=== PATIENT | female | born 1980 | race Caucasian/White ===

== ENCOUNTER 2018-12-07 18:37 | Emergency (ER) | payer BC ==
[2018-12-07 18:53] VITALS: BP 120/70
--- NOTE | 2018-12-07 18:55 | UC ---
UC General HPI - HPI Summary HPI Summary: 38 yo alba presents with body aches, low back pain, and lower abdominal cramping since last night. Pt tells me that last night around 1700 she began to feel fatigued with body aches. Later developed severe low back pain with some mild lower abdominal pain. She took ibuprofen and benadryl and their symptoms improved. This morning her discomfort is significantly improved, but still feels fatigued and has body aches with mild lower abdominal pain. They are eating and drinking well. Denies fever, sinus symptoms, sore throat, cough, SOB , chest pain, n/v/d/c, dysuria. PMHx with IBS and chronic pain/fatigue syndrome. - History of Current Complaint Chief Complaint: UCGeneralIllness Stated Complaint: PAIN, WEAKNESS Time Seen by Provider: 12/07/18 18:54 Hx Obtained From: Patient Onset/Duration: Gradual Onset Onset Severity: Severe Current Severity: Moderate Pain Intensity: 5 - Allergy/Home Medications Allergies/Adverse Reactions: Allergies Allergy/AdvReac Type Severity Reaction Status Date / Time No Known Allergies Allergy Verified 12/07/18 18:54 Home Medications: Home Medications Estradiol Cypionate [Depo-Estradiol] 1 unit IM SEE INSTRUCTIONS 12/07/18 [ History Confirmed 12/07/18] Ibuprofen [Advil] 400 mg PO ONCE PRN 12/07/18 [History Confirmed 12/07/18] diphenhydrAMINE HCl [Benadryl Allergy] 1 tab PO ONCE PRN 12/07/18 [History Confirmed 12/07/18] PMH/Surg Hx/FS Hx/Imm Hx - Additional Past Medical History Additional PMH: Hepatitis C Trans - Surgical History Surgical History: Yes Surgery Procedure, Year, and Place: breast augmentation. vaginalplasty - Family History Known Family History: Positive: None - Social History Lives: With Family Alcohol Use: Occasionally Substance Use Type: None Smoking Status (MU): Never Smoked Tobacco Review of Systems All Other Systems Reviewed And Are Negative: Yes Constitutional: Positive: Fatigue, Other - Body aches Skin: Positive: Negative Respiratory: Positive: Negative Cardiovascular: Positive: Negative Gastrointestinal: Positive: Abdominal Pain Genitourinary: Positive: Negative Neurovascular: Positive: Negative Musculoskeletal: Positive: Other: - Low back pain Neurological: Positive: Negative Psychological: Positive: Negative Physical Exam - Summary Physical Exam Summary: GENERAL: NAD. WDWN. No pain distress. SKIN: No rashes, sores, or open wounds. HEENT: Head: AT/NC Eyes: PERRLA. EOM intact. Conjunctiva clear without inflammation or discharge. Ears: Hearing grossly normal. TMs intact, no bulging, erythema, or edema. Nose: Nasal mucosa pink and moist. NTTP maxillary and frontal sinus. Throat: Posterior oropharynx without exudates, erythema, or tonsillar enlargement. Uvula midline. NECK: Supple. Nontender. No lymphadenopathy. CHEST: CTAB. No r/r/w. No accessory muscle use. Breathing comfortably and in no distress. CV: RRR. Without m/r/g. Pulses intact. Brisk cap refill. ABDOMEN: Mild TTP lower abdomen without specific tenderness.Soft. No distention or guarding. No CVA tenderness. Bowel sounds present. Negative dumont. No Mcburney point tenderness. MSK: Lumbar spine: Mild TTP paraspinal muscles. Positive SLR on right for low back pain without radiation. FROM and 5/5 strength throughout. No edema. NEURO: Alert. Sensations intact L3-S1 b/l. Reflexes intact. PSYCH: Age appropriate behavior. Triage Information Reviewed: Yes Vital Signs: Initial Vital Signs Temp 98.3 F 12/07/18 18:47 Pulse 70 12/07/18 18:47 Resp 18 12/07/18 18:47 BP 120/70 12/07/18 18:47 Pulse Ox 100 12/07/18 18:47 Laboratory Tests 12/07/18 12/07/18 19:16 19:17 POC Urine Color Yellow POC Urine Clarity Clear POC Urine pH 6.5 POC Ur Specif Adger 1.015 POC Urine Protein Negative POC Ur Glucose (UA) Negative POC Urine Ketones Negative POC Urine Blood Trace-intact A POC Urine Nitrite Negative POC Urine Bilirubin Negative POC Urine Urobilinogen 0.2 POC U Leukocyte Esteras Negative Group A Strep Rapid Negative Vital Signs Reviewed: Yes Course/Dx - Course Course Of Treatment: CT: IMPRESSION: No CT findings to correlate with patient's symptomatology. UA and strep negative. At this time I do not suspect a systemic or urgent/emergent condition as pt is well appearing, afebrile, exam WNL, and workup so far has been normal. I suspect more of a viral illness or underlying chronic illness - possibly related to their chronic fatigue/pain syndrome. Will draw for CBC, CMP, TSH, lyme, and ESR and have pt f/u with their PCP as scheduled for later this month. - Diagnoses Provider Diagnosis: Body aches, Lower abdominal pain, Low back pain Discharge - Sign-Out/Discharge Documenting (check all that apply): Patient Departure All imaging exams completed and their final reports reviewed: Yes - Discharge Plan Condition: Stable Disposition: HOME Referrals: No Primary Care Phys,NOPCP [Primary Care Provider] - Additional Instructions: If you develop a fever, shortness of breath, chest pain, new or worsening symptoms - please call your PCP or go to the ED immediately. I am unsure the cause of your symptoms today, but luckily your exam and testing today has all been normal. We have drawn labwork to further evaluate your symptoms. I recommend that you rest and take ibuprofen as directed for your discomfort and keep your appointment with your Primary Doctor later this month for a recheck of your symptoms. - Billing Disposition and Condition Condition: STABLE Disposition: Home
[2018-12-08 10:58] LABS: ABS Basophils 0.1 10^3/ul (0-0.2); ABS Eosinophils 0.3 10^3/ul (0-0.6); ABS Monocytes 0.4 10^3/ul (0-0.8); ABS Neutrophils 5.8 10^3/ul (1.5-7.7); Eosinophil % 3.3 %; Hematocrit 38 % (35-47); Hemoglobin 12.9 g/dL (12.0-16.0); Lymphocyte % 23.4 %; Mean Corpuscular HGB Conc 34 g/dL (31-36); Mean Corpuscular Hemoglobin 31 pg (27-31); Mean Corpuscular Volume 93 fL (80-97); Mean Platelet Volume 9.3 fL (7.4-10.4); Platelet Count 191 10^3/uL (150-450); Red Blood Count 4.12 10^6 /uL (3.70-4.87); Red Cell Distribution Width 13 % (10-15); White Blood Count 8.6 10^3/uL (3.5-10.8)
[2018-12-08 11:06] LABS: Albumin 4.4 g/dL (3.2-5.2); Calcium 9.7 mg/dL (8.6-10.3); Potassium 4.2 mmol/L (3.5-5.0); Total Bilirubin 0.4 mg/dL (0.2-1.0)
[2018-12-08 11:12] LABS: Albumin/Globulin Ratio 1.8 (1-3); BUN/Creatinine Ratio 18.1 (8-20); EGFR African American 81.5 (>60); EGFR Non-African American 67.4 (>60); Globulin 2.5 g/dL (2-4); Total Protein 6.9 g/dL (6.4-8.9)
[2018-12-08 11:51] LABS: HIV 4th Generation Negative (Negative)
[2018-12-08 11:52] LABS: TSH (Thyroid Stimulating Horm) 3.61 mcIU/mL (0.34-5.60)
--- NOTE | 2018-12-08 15:35 | UC ---
- Progress Note Progress Note: CBC WNL TSH WNL CMP with slightly elevated ALT and AST. --- Fairly non-specific and does not seem related to pt's symptomology at visit. Perhaps NAFLD or due to hormone therapy. Suggest to have further eval with PCP as scheduled later this month Course/Dx - Diagnoses Provider Diagnoses: Body aches, Lower abdominal pain, Low back pain Discharge - Sign-Out/Discharge Documenting (check all that apply): Post-Discharge Follow Up All imaging exams completed and their final reports reviewed: Yes - Discharge Plan Condition: Stable Disposition: HOME Referrals: No Primary Care Phys,NOPCP [Primary Care Provider] - Additional Instructions: If you develop a fever, shortness of breath, chest pain, new or worsening symptoms - please call your PCP or go to the ED immediately. I am unsure the cause of your symptoms today, but luckily your exam and testing today has all been normal. We have drawn labwork to further evaluate your symptoms. I recommend that you rest and take ibuprofen as directed for your discomfort and keep your appointment with your Primary Doctor later this month for a recheck of your symptoms. - Billing Disposition and Condition Condition: STABLE Disposition: Home
== END 2018-12-07 20:50 | disposition home or self-care (01) ==
LOC: UCEAST 18:37
DX: M79.10 Myalgia, unspecified site (principal); R10.30 Lower abdominal pain, unspecified; M54.5 Low back pain; F64.1 Dual role transvestism; B19.20 Unspecified viral hepatitis C without hepatic coma; Z87.890 Personal history of sex reassignment
CPT/HCPCS: 36415; 74176; 80053; 81003; 84443; 85025; 86618; 87389; 87651; 99201; G0463

== ENCOUNTER 2019-05-31 05:23 | Emergency (ER) | payer BC ==
[2019-05-31] MEDS ORDERED: NS 0.9% 1000 ML** 1,000 ML IV ONE ×2 (05:29→09:34)
--- NOTE | 2019-05-31 05:50 | ED ---
Substance Abuse/Use - HPI Summary HPI Summary: Patient is a 39 y/o F presenting to [facility] via EMS for substance abuse and unresponsiveness. The patient states that she was given what she thought was Dilaudid. After injecting, the patient subsequently became unresponsive. She was found by her roommate, who called EMS. Patient states that she awoke when the ambulance arrived. She is currently alert and oriented x3. Patient believes she was given heroin as opposed to Dilaudid. She endorses fatigue but denies CP , SOB, and abdominal pain. She reports Hx of ADHD for which she takes Adderall, chronic back pain. She denies tobacco usage but endorses rare alcohol usage. PSHx of breast augmentation and vaginoplasty stated. Home medications and allergies are reviewed. - History Of Current Complaint Chief Complaint: EDOverdose Stated Complaint: OVERDOSE PER EMS Time Seen by Provider: 05/31/19 05:26 Hx Obtained From: Patient Ingestion History: Type/Name Of Drug - dilaudid or heroin Overdose Characteristics: IV Severity Currently: None Character: Other - unresponsive, since resolved Associated Signs And Symptoms: Other: - negative - CP, SOB, abd pain; positive - fatigue - Allergies/Home Medications Allergies/Adverse Reactions: Allergies Allergy/AdvReac Type Severity Reaction Status Date / Time No Known Allergies Allergy Verified 12/07/18 18:54 Home Medications: Home Medications Dextroamphetamine/Amphetamine [Adderall Xr 20 mg Capsule] 20 mg PO DAILY [History Confirmed 05/31/19] Guanfacine ER (NF) [Intuniv (NF)] 3 mg PO DAILY 05/31/19 [History Confirmed 09/14] PMH/Surg Hx/FS Hx/Imm Hx Musculoskeletal History: Reports: Hx Back Problems Sensory History: Denies: Hx Legally Blind, Hx Deafness Opthamlomology History: Denies: Hx Legally Blind EENT History: Denies: Hx Deafness Psychiatric History: Reports: Hx Attention Deficit Hyperactivity Disorder - Surgical History Surgery Procedure, Year, and Place: breast augmentation. vaginalplasty Infectious Disease History: No Infectious Disease History: Reports: Hx Hepatitis - C- was treated Denies: Traveled Outside the [place] in Last 30 Days - Family History Known Family History: Negative: Seizure Disorder - Social History Alcohol Use: Rare Substance Use Type: Reports: Prescribed Substance Use Comment - Amount & Last Used: Hx of IVDU-denies use since 2011 Smoking Status (MU): Never Smoked Tobacco Review of Systems Constitutional: Other - positive - since resolved unresponsiveness, substance usage Positive: Fatigue Negative: Chest Pain Negative: Shortness Of Breath Negative: Abdominal Pain All Other Systems Reviewed And Are Negative: Yes Physical Exam - Summary Physical Exam Summary: General: Well-developed, Well-nourished female. No acute distress. HEENT: Normocephalic, Atraumatic. Eyes: Conjuctiva normal, PERRL. Ears: TMs within normal limits. Nares: (-) discharge, (-) erythema. Oropharynx: Clear, mucous membranes dry, (-) exudates. Poor dentition. Neck: Soft, FROM, (-) lymphadenopathy, (-) thyromegaly, (-) JVD. Cardiovascular: Normal sinus rhythm, (-) murmur. Lungs: Clear to auscultation bilaterally (-) wheezes, (-) rales, (-) rhonchi. Abdomen: Soft, non-tender, non-distended, (-) organomegaly, normal bowel sounds. Back: (-) CVA tenderness Extremities: No edema. Skin: Warm, dry, (-) rash. Neuro: Alert and oriented x3, no focal deficits. Psychiatric: Somnolent Triage Information Reviewed: Yes Vital Signs On Initial Exam: Initial Vitals Temp Pulse Resp BP Pulse Ox 98.4 F 111 16 144/85 94 05/31/19 05:24 05/31/19 05:24 05/31/19 05:24 05/31/19 05:24 05/31/19 05:24 Vital Signs Reviewed: Yes Procedures - Sedation Patient Received Moderate/Deep Sedation with Procedure: No Diagnostics - Vital Signs Vital Signs Temp Pulse Resp BP Pulse Ox 05/31/19 05:24 98.4 F 111 16 144/85 94 - Laboratory Result Diagrams: 05/31/19 05:59 05/31/19 05:59 Lab Statement: Any lab studies that have been ordered have been reviewed, and results considered in the medical decision making process. - EKG 1753 Cardiac Rate: Tachycardia - RATE OF 112 BPM EKG Rhythm: Sinus Tachycardia Summary of EKG Findings: EKG showed sinus tachycardia with rate of 112 BPM, no STEMI. This EKG was reviewed and interpreted by ED physician. Re-Evaluation - Re-Evaluation First Eval Re-Evaluation Time: 10:32 Change: Improved Comment: Pt reports she is feeling great. She denies any pain. Course/Dx - Course Course Of Treatment: 39-year-old female presents with lethargy. Patient states she thought she injected dye lauded from a friend. In retrospect thinks it might have been heroin. She has episodes of hypoxia and is placed on oxygen. Also given IV fluids. Workup and reevaluation pending. Patient signed out at change of shift. - Diagnoses Provider Diagnoses: Newly diagnosed diabetes Discharge ED - Sign-Out/Discharge Documenting (check all that apply): Sign-Out Patient Signing out patient TO: Julius Gunter - Discharge Plan Condition: Stable Disposition: HOME Prescriptions: metFORMIN* [Glucophage 500 MG TAB *] 500 mg PO BID #60 tab Patient Education Materials: Type 2 Diabetes in Adults: New Diagnosis (ED) Referrals: [facility] [Outside] Additional Instructions: FOLLOW UP WITH YOUR PRIMARY CARE PROVIDER TOMORROW. RETURN TO THE EMERGENCY DEPARTMENT FOR ANY WORSENING OR NEW SYMPTOMS. - Billing Disposition and Condition Condition: STABLE Disposition: Home - Attestation Statements Document Initiated by Scribe: Yes Documenting Scribe: ELY OSBORNE Provider For Whom Shobhaibe is Documenting (Include Credential): SALVADOR WALKER MD Scribe Attestation: ELY Herrera scribed for SALVADOR WALKER MD on 06/03/19 at 0032. Scribe Documentation Reviewed: Yes Provider Attestation: The documentation as recorded by the ELY crowley accurately reflects the service I personally performed and the decisions made by me, SALVADOR WALKER MD Status of Scribe Document: Viewed
[2019-05-31 06:21] LABS: ABS Eosinophils 0.1 10^3/ul (0-0.6); ABS Lymphocytes 0.8 10^3/ul (1.0-4.8); ABS Monocytes 0.6 10^3/ul (0-0.8); ABS Neutrophils 11.4 10^3/ul (1.5-7.7); Eosinophil % 0.6 %; Hematocrit 34 % (35-47); Hemoglobin 11.6 g/dL (12.0-16.0); Lymphocyte % 6.4 %; Mean Corpuscular HGB Conc 34 g/dL (31-36); Mean Corpuscular Hemoglobin 31 pg (27-31); Mean Corpuscular Volume 90 fL (80-97); Mean Platelet Volume 8.1 fL (7.4-10.4); Platelet Count 160 10^3/uL (150-450); Red Blood Count 3.79 10^6 /uL (3.70-4.87); Red Cell Distribution Width 14 % (10-15)
[2019-05-31 06:37] LABS: ALT 18 U/L (7-52); AST 16 U/L (13-39); Albumin 3.9 g/dL (3.2-5.2); Albumin/Globulin Ratio 1.6 (1-3); Alkaline Phosphatase 53 U/L (34-104); Anion Gap 9 mmol/L (2-11); BUN/Creatinine Ratio 9.1 (8-20); Blood Urea Nitrogen 10 mg/dL (6-24); CO2 Carbon Dioxide 30 mmol/L (22-32); Calcium 9.1 mg/dL (8.6-10.3); Chloride 97 mmol/L (101-111); EGFR African American 67.6 (>60); EGFR Non-African American 55.9 (>60); Globulin 2.4 g/dL (2-4); Glucose 252 mg/dL (70-100); Potassium 3.4 mmol/L (3.5-5.0); Sodium 136 mmol/L (135-145); Total Protein 6.3 g/dL (6.4-8.9)
[2019-05-31 06:44] LABS: HCG Pregnancy < 0.60 mIU/mL
[2019-05-31 07:02] LABS: Acetaminophen < 15 mcg/mL; Alcohol < 10 mg/dL (<10); Salicylate < 2.50 mg/dL (<30)
--- NOTE | 2019-05-31 07:30 | ED ---
Progress - Progress Note Progress Note: This pt was signed out by Dr. Holcomb at shift change on 05/31/19 at 0700 awaiting labs, urinalysis, and pending disposition. Re-Evaluation - Re-Evaluation First Eval Re-Evaluation Time: 10:32 Change: Improved Comment: Pt reports she is feeling great. She denies any pain. Course/Dx - Course Course Of Treatment: This pt is a 39 y/o female that was signed out by Dr. Holcomb at shift change pending labs, urinalysis, and toxicology screen. Pt reports for the last couple of months she has been feeling weak, with polydipsia , polyuria, and polyphagia but losing weight. She notes she has family history of diabetes but she herself does not have history of diabetes. Pt reports yesterday she had a shot for pain, but does not know what it was exactly. Initially patient thought it was Dilaudid but then thought it was heroin, but she is still unsure. Lab results without any significant abnormalities except for WBC of 13, potassium of 3.4, chloride of 97, creatinine of 1.10, glucose is 252. Urinalysis shows specific gravity 1.008, trace ketones and 3+ glucose. Toxicology is negative. In the ED course the pt received IV fluids and potassium chloride. Pt is currently feeling great and denies any pain. She is alert and oriented x3, and hemodynamically stable. Pt will be discharged home with follow up from her PCP tomorrow. Patient will be given a prescription for Metformin since I believe that the patient has a new diagnosis of diabetes. - Diagnoses Provider Diagnoses: Newly diagnosed diabetes Discharge ED - Sign-Out/Discharge Documenting (check all that apply): Patient Departure - Discharge home, Receiving Sign-Out Receiving patient FROM: Rowena Holcomb - Discharge Plan Condition: Stable Disposition: HOME Prescriptions: metFORMIN* [Glucophage 500 MG TAB *] 500 mg PO BID #60 tab Patient Education Materials: Type 2 Diabetes in Adults: New Diagnosis (ED) Referrals: [facility] [Outside] Additional Instructions: FOLLOW UP WITH YOUR PRIMARY CARE PROVIDER TOMORROW. RETURN TO THE EMERGENCY DEPARTMENT FOR ANY WORSENING OR NEW SYMPTOMS. - Billing Disposition and Condition Condition: STABLE Disposition: Home - Attestation Statements Document Initiated by Scribe: Yes Documenting Scribe: Mable Mcfadden Provider For Whom Scribe is Documenting (Include Credential): Julius Gunter MD Scribe Attestation: I, Mable Mcfadden, scribed for Julius Gunter MD on 06/01/19 at 1843. Scribe Documentation Reviewed: Yes Provider Attestation: The documentation as recorded by the scribe, Mable Mcfadden accurately reflects the service I personally performed and the decisions made by me, Julius Gunter MD Status of Scribe Document: Viewed
[2019-05-31 08:49] LABS: Urine Appearance Cloudy; Urine Bilirubin Negative (Negative); Urine Blood Negative (Negative); Urine Color Yellow; Urine Glucose 3+(>=500 mg/dL) (Negative); Urine Ketones Trace (Negative); Urine Nitrite Negative (Negative); Urine Protein Negative (Negative); Urine Specific Gravity 1.008 (1.010-1.030); Urine Urobilinogen Negative (Negative)
[2019-05-31 09:15] LABS: Urine Benzodiazepine Screen None Detected (None Detect); Urine Opiates Screen None Detected (None Detect)
[2019-05-31] MEDS ORDERED: Potassium Chlor TAB* 20 MEQ TAB.ER PO ONE (09:35)
[2019-05-31 10:51] VITALS: BP 127/89
== END 2019-05-31 10:49 | disposition home or self-care (01) ==
LOC: ED 05:23
DX: T50.901A Poisoning by unspecified drugs, medicaments and biological substances, accidental (unintentional), initial encounter (principal); E11.9 Type 2 diabetes mellitus without complications; Y92.9 Unspecified place or not applicable; F90.9 Attention-deficit hyperactivity disorder, unspecified type; Z79.899 Other long term (current) drug therapy
CPT/HCPCS: 36415; 80053; 80307; 80320; 80329; 81003; 83605; 84702; 85025; 93005; 96360; 99283; A9270-GY; G0480